=== PATIENT | male | born 1965 | race Caucasian/White ===

== ENCOUNTER 2016-07-26 23:49 | Emergency (ER) | payer BC ==
[2016-07-26 20:55] LABS: WBC (NOT ORDERED) (RFLEX) 0 (0-5)
[2016-07-26 21:00] LABS: BASOPHILS 0.5 %; BASOPHILS ABSOLUTE 0.04 10/3/uL (0.0-0.16); EOSINOPHILS 2.5 %; ER CBC TAT 0 Hrs 12 Mins; HEMATOCRIT 50.7 % (40.0-51.0); HEMOGLOBIN 17.9 g/dL (13.6-17.8); IMMATURE GRANULOCYTES 0.5 %; IMMATURE GRANULOCYTES ABSOLUTE 0.04 10/3/uL (0.0-0.11); LYMPHOCYTES 18.2 %; LYMPHOCYTES ABSOLUTE 1.46 10/3/uL (0.67-4.30); MANUAL DIFF NO %; MEAN CORPUS HGB CONC 35.3 g/dL (32.0-36.0); MEAN CORPUSCULAR HEMOGLOB 31.5 pg (26.0-34.0); MEAN CORPUSCULAR VOLUME 89.3 fL (80-100); MEAN PLATELET VOLUME 10.6 fL (9.2-13.0); MONOCYTES 10.9 %; MONOCYTES ABSOLUTE 0.88 10/3/uL (0.21-1.20); NEUTROPHILS 67.4 %; NEUTROPHILS ABSOLUTE 5.42 10/3/uL (2.02-8.40); PLATELET COUNT 229 10/3/uL (150-400); RBC DISTRIBUTION WIDTH 12.7 % (12.0-16.0); RED CELL COUNT 5.68 10/6/uL (4.7-6.1)
[2016-07-26 21:01] LABS: ASCORBIC ACID (UR NOT ORDER) NEG (NEG); BILIRUBIN, URINE NEGATIVE (NEG); ER URINALYSIS TAT 0 Hrs 08 Mins; KETONE, URINE NEGATIVE (NEG); LEUKOCYTE ESTERASE(NOT OR NEG (NEG); NITRITE (URINE) NEG (NEG)
[2016-07-26 21:22] LABS: ALLENS TEST Pos; BE (BASE EXCESS) 1.5 MEQ/L (0 +/- 2.5); CARBOXYHEMOGLOBIN 0.8 % (0-3); HCO3 (ACTUAL BICARBONATE) 24.5 MEQ/L (23-27); HEMOBLOGIN CONTENT 17.7 G/DL (14-18); INSTRUMENT SERIAL # 8087; METHEMOGLOBIN 0.4 % (0-3); O2 CONTENT 23.6 VOL% (18-24); OPERATOR ID 33449; PCO2 (CO2 TENSION) 35 MMHG (35-45); PO2 (O2 TENSION) 74 MMHG (79-93); SAMPLE Arterial; pH 7.47 (7.37-7.43)
[2016-07-26 21:25] LABS: A/G RATIO 1.4 (0.7-1.9); ALKALINE PHOSPHATASE 96 U/L (45-117); BUN (BLOOD UREA NITROGEN) 23 MG/DL (6-23); CALCIUM, SERUM 8.8 MG/DL (8.5-10.4); CHLORIDE, SERUM 108 MMOL/L (96-112); CO2 (CARBON DIOXIDE) 27 MMOL/L (24-34); CREATININE 1.08 MG/DL (0.70-1.30); GFR AFRICAN AMERICAN 91 ML/MIN (>=60); GFR NON AFRICAN AMERICAN 78 ML/MIN (>=60); GLOBULIN 2.8 G/DL (2.5-4.1); GLUCOSE, SERUM 100 MG/DL (60-99); SGPT(ALT) 52 U/L (5-65); SODIUM, SERUM 142 MMOL/L (135-148); TOTAL BILIRUBIN 1.2 MG/DL (0-1.2); TOTAL PROTEIN 6.8 G/DL (6.0-8.5)
[2016-07-26 21:26] LABS: POTASSIUM, SERUM 4.2 MMOL/L (3.5-5.3); SGOT(AST) 45 U/L (5-40)
[2016-07-27 01:10] LABS: ACETAMINOPHEN LEVEL (TYLENOL) < 2.0 MCG/ML (10.0-20.0); ALCOHOL < 10 MG/DL (0); SALICYLATE < 1.7 MG/DL (-)
[2016-07-27] MEDS ORDERED: [UNRECOGNIZED DRUG - OTHER] PO (01:12)
[2016-07-27] MEDS ORDERED: ASAB PO (01:12)
[2016-07-27] MEDS ORDERED: MAG OXIDE250 MG PO (01:12)
[2016-07-27] MEDS ORDERED: CITRACAL PO (01:13)
[2016-07-27] MEDS ORDERED: TESTOSTERONE PELLETS IM (01:13)
[2016-07-27] MEDS ORDERED: FISH-EPA1000 MG PO (01:14)
[2016-07-27] MEDS ORDERED: ZINC OTC PO (01:14)
[2016-07-27] MEDS ORDERED: TUMERIC CURCUMIN PO (01:15)
[2016-07-27] MEDS ORDERED: VITAMIN D1000 UNI1 PO (01:15)
[2016-07-27] MEDS ORDERED: [UNRECOGNIZED DRUG - OTHER] PO (01:16)
[2016-07-27 01:24] LABS: TROPONIN I <0.02 NG/ML (<0.05)
[2016-07-27 02:17] LABS: AMPHETAMINES (NOT ORD) NEG (NEG); BARBITURATES (NOT ORDERED NEG (NEG); BENZODIAZEPINES (NOT ORD) NEG (NEG); CANNABINOIDS (THC) NEG (NEG); COCAINE (NOT ORDERED) NEG (NEG); OPIATES NEG (NEG); PHENCYCLIDINE(PCP) NEG (NEG); TRICYCLICS NEG (NEG)
== END 2016-07-27 02:14 | disposition short-term general hospital (02) ==
LOC: ER 23:49
PROVIDERS: Emergency Medicine
DX: S09.90XA Unspecified injury of head, initial encounter (principal); S42.402A Unspecified fracture of lower end of left humerus, initial encounter for closed fracture; K85.90 Acute pancreatitis without necrosis or infection, unspecified; S80.12XA Contusion of left lower leg, initial encounter; R56.9 Unspecified convulsions; R74.8 Abnormal levels of other serum enzymes; Z88.0 Allergy status to penicillin; Z79.82 Long term (current) use of aspirin; Z79.899 Other long term (current) drug therapy; W19.XXXA Unspecified fall, initial encounter
CPT/HCPCS: 36600; 70450; 71010; 72125; 73030-LT; 73060-LT; 73080-LT; 73090-LT; 73110-LT; 73130-LT; 73200-LT; 80053; 80305; 80307; 81001; 82150; 82805; 83690; 84484; 85025; 93005; 96374; 96375; 96376; 99291; J1170; J1953; J2405; J2930